=== PATIENT | male | born 1960 | race Caucasian/White ===

== ENCOUNTER 2023-04-12 14:14 | Inpatient (IN) | payer MEDICARE, OTHER ==
[~2023-04-12] VITALS: Ht 170.2 cm; Wt 63.5 kg
[2023-04-12 14:42] LABS: BASOPHILS % (AUTO) 0.4 % (0.0-2.0); EOSINOPHILS # (AUTO) 0.1 K/uL (0.0-0.7); EOSINOPHILS % (AUTO) 1.3 % (0.0-7.0); HEMATOCRIT 39.9 % (36.7-47.1); HEMOGLOBIN 13.6 g/dL (12.5-16.3); LYMPHOCYTES # (AUTO) 0.6 K/uL (0.8-4.8); LYMPHOCYTES % (AUTO) 8.8 % (20.5-51.5); MEAN CORPUSCULAR HEMOGLOBIN 32.2 uug (23.8-33.4); MEAN CORPUSCULAR HGB CONC 34 g/dL (32.5-36.3); MEAN CORPUSCULAR VOLUME 94.5 fL (73.0-96.2); MONOCYTES # (AUTO) 0.8 K/uL (0.1-1.30); MONOCYTES % (AUTO) 11.3 % (0.0-11.0); NEUTROPHILS # (AUTO) 5.6 K/uL (1.8-8.9); NEUTROPHILS % (AUTO) 78.2 % (38.5-71.5); PLATELET COUNT (AUTO) 236 K/uL (152-348); RED BLOOD CELL COUNT(AUTO) 4.22 MIL/uL (4.06-5.63); RED CELL DISTRIBUTION WIDTH 14.7 % (12.1-16.2); WHITE BLOOD COUNT (AUTO) 7.2 K/uL (3.6-10.2)
[2023-04-12] MEDS ORDERED: QUET25TA3 (15:04)
[2023-04-12] MEDS ORDERED: CLONAZEPAM (15:04)
[2023-04-12 15:05] LABS: DIFFERENTIAL COMMENT 1
[2023-04-12 15:07] LABS: AMMONIA 10 umol/L (11-32)
[2023-04-12 15:10] LABS: CALCIUM 8.9 mg/dL (8.5-10.1); CARBON DIOXIDE 27 mmol/L (21-32); CHLORIDE 104 mmol/L (98-107); GLUCOSE 99 mg/dL (74-106); POTASSIUM 3.5 mmol/L (3.5-5.1); SODIUM SERUM 140 mmol/L (136-145); UREA NITROGEN, BLOOD 18 mg/dL (7-18)
[2023-04-12 15:13] LABS: ETHANOL < 3 MG/DL (0-10)
[2023-04-12 15:18] LABS: ALANINE AMINOTRANSFERASE 43 U/L (16-63); ALBUMIN 3.8 g/dL (3.4-5.0); ALKALINE PHOSPHATASE 74 U/L (50-136); ASPARTATE AMINOTRANSFERASE 49 U/L (15-37); BILIRUBIN,DIRECT 0.3 mg/dL (0.0-0.2); BILIRUBIN,TOTAL 0.8 mg/dL (0.2-1.0); TOTAL PROTEIN, SERUM 6.7 g/dL (6.4-8.2)
[2023-04-12 15:33] LABS: ACETAMINOPHEN < 2.0 ug/mL (10-30)
[2023-04-12 18:15] VITALS: BP 143/82; TEMP 98.1; O2SAT 98
[2023-04-12 18:51] VITALS: BP 143/80; TEMP 98.1; O2SAT 98
[2023-04-12 20:05] VITALS: BP 128/89; TEMP 98.5; O2SAT 98
[2023-04-12] MEDS ORDERED: MAG HYDROX/AL HYDROX/SIMETH 30 ML LIQUID UDC PO PRN (20:15)
[2023-04-12] MEDS ORDERED: MAGNESIUM HYDROXIDE 30 ML LIQUID UDC PO PRN (20:15)
[2023-04-12] MEDS: LORAZEPAM 0.5 MG TABLET PO PRN (21:01)
[2023-04-13 07:52] LABS: BASOPHILS # (AUTO) 0.1 K/UL (0.0-0.2); BASOPHILS % (AUTO) 1.1 % (0.0-2.0); EOSINOPHILS # (AUTO) 0.5 K/uL (0.0-0.7); EOSINOPHILS % (AUTO) 7.7 % (0.0-7.0); HEMATOCRIT 39.6 % (36.7-47.1); HEMOGLOBIN 13.6 g/dL (12.5-16.3); LYMPHOCYTES # (AUTO) 1.2 K/uL (0.8-4.8); LYMPHOCYTES % (AUTO) 17.8 % (20.5-51.5); MEAN CORPUSCULAR HEMOGLOBIN 32.6 uug (23.8-33.4); MEAN CORPUSCULAR HGB CONC 34 g/dL (32.5-36.3); MEAN CORPUSCULAR VOLUME 94.8 fL (73.0-96.2); MONOCYTES # (AUTO) 0.9 K/uL (0.1-1.30); MONOCYTES % (AUTO) 12.9 % (0.0-11.0); NEUTROPHILS % (AUTO) 60.5 % (38.5-71.5); PLATELET COUNT (AUTO) 234 K/uL (152-348); RED BLOOD CELL COUNT(AUTO) 4.18 MIL/uL (4.06-5.63); RED CELL DISTRIBUTION WIDTH 14.3 % (12.1-16.2); WHITE BLOOD COUNT (AUTO) 6.6 K/uL (3.6-10.2)
[2023-04-13 08:00] VITALS: BP 130/77; TEMP 98.3; O2SAT 98
[2023-04-13 08:02] LABS: DIFFERENTIAL COMMENT 1
[2023-04-13 08:07] LABS: ALBUMIN 3.4 g/dL (3.4-5.0); BILIRUBIN,TOTAL 0.9 mg/dL (0.2-1.0); CALCIUM 8.8 mg/dL (8.5-10.1); CREATININE 0.9 mg/dL (0.6-1.3); POTASSIUM 3.2 mmol/L (3.5-5.1); TOTAL PROTEIN, SERUM 6.3 g/dL (6.4-8.2)
[2023-04-13] MEDS: LORAZEPAM 0.5 MG TABLET PO PRN (12:45)
[2023-04-13] MEDS ORDERED: POTASSIUM CHLORIDE 20 MEQ TAB.PRT.SR PO ONE (14:00)
[2023-04-13] MEDS ORDERED: risperiDONE 1 MG/ML UDC GT SCH (14:00)
[2023-04-13 16:50] VITALS: BP 115/82; TEMP 98.1; O2SAT 98
[2023-04-13] MEDS: risperiDONE 1 MG/ML UDC PO SCH ×2 (17:46→20:23)
[2023-04-13 20:00] VITALS: BP 109/74; TEMP 98.2; O2SAT 97
[2023-04-13] MEDS: CLONAZEPAM 1 MG TABLET PO SCH (20:23)
[2023-04-14] MEDS: ACETAMINOPHEN 325 MG TABLET PO PRN (05:34)
[2023-04-14] MEDS: LORAZEPAM 0.5 MG TABLET PO PRN ×2 (05:34→11:24)
[2023-04-14 07:52] VITALS: BP 122/76; TEMP 98.1; O2SAT 99
[2023-04-14] MEDS: risperiDONE 1 MG/ML UDC PO SCH ×3 (08:37→16:42)
[2023-04-14 16:36] VITALS: BP 105/72; TEMP 98; O2SAT 97
[2023-04-14 20:00] VITALS: BP 102/71; TEMP 98.3; O2SAT 98
[2023-04-14] MEDS: CLONAZEPAM 1 MG TABLET PO SCH (20:11)
[2023-04-14] MEDS ORDERED: risperiDONE 1 MG TABLET PO SCH (21:00)
[2023-04-14] MEDS: TEMAZEPAM 7.5 MG CAPSULE PO PRN (23:20)
[2023-04-15 07:30] VITALS: BP 126/74; TEMP 98; O2SAT 99
[2023-04-15] MEDS: risperiDONE 1 MG/ML UDC PO SCH ×3 (08:34→16:30)
[2023-04-15] MEDS ORDERED: OLANZAPINE 10 MG VIAL IM STA (10:39)
[2023-04-15] MEDS: DIVALPROEX SPRINKLE 125 MG CAP.SPRINK PO SCH ×2 (13:08→16:30)
[2023-04-15 15:34] VITALS: BP 132/71; TEMP 98; O2SAT 99
[2023-04-15 20:00] VITALS: BP 127/83; TEMP 98.1; O2SAT 96
[2023-04-15] MEDS ORDERED: risperiDONE 1 MG TABLET PO SCH (21:00)
[2023-04-15] MEDS: risperiDONE 2 MG TABLET PO SCH (21:07)
[2023-04-15] MEDS: CLONAZEPAM 1 MG TABLET PO SCH (21:08)
[2023-04-15] MEDS: TEMAZEPAM 7.5 MG CAPSULE PO PRN (23:00)
[2023-04-16 07:30] VITALS: BP 144/78; TEMP 98; O2SAT 99
[2023-04-16] MEDS: risperiDONE 1 MG/ML UDC PO SCH ×3 (08:51→17:49)
[2023-04-16] MEDS: DIVALPROEX SPRINKLE 125 MG CAP.SPRINK PO SCH ×3 (08:51→17:48)
[2023-04-16 15:36] VITALS: BP 141/75; TEMP 98.2; O2SAT 99
[2023-04-16 20:04] VITALS: BP 145/74; TEMP 98.1; O2SAT 98
[2023-04-16] MEDS: CLONAZEPAM 1 MG TABLET PO SCH (20:23)
[2023-04-16] MEDS: ATORVASTATIN 10 MG TABLET PO SCH (20:24)
[2023-04-16] MEDS: risperiDONE 2 MG TABLET PO SCH (20:24)
[2023-04-16] MEDS: LORAZEPAM 0.5 MG TABLET PO PRN (23:27)
[2023-04-17 08:12] VITALS: BP 118/77; TEMP 97.8; O2SAT 99
[2023-04-17] MEDS: DIVALPROEX SPRINKLE 125 MG CAP.SPRINK PO SCH ×3 (08:39→16:37)
[2023-04-17] MEDS: risperiDONE 1 MG/ML UDC PO SCH ×3 (08:41→16:37)
[2023-04-17 15:11] VITALS: BP 123/84; TEMP 98; O2SAT 98
[2023-04-17 20:05] VITALS: BP 102/70; TEMP 98.1; O2SAT 98
[2023-04-17] MEDS: risperiDONE 2 MG TABLET PO SCH (20:41)
[2023-04-17] MEDS: CLONAZEPAM 1 MG TABLET PO SCH (20:42)
[2023-04-17] MEDS: ATORVASTATIN 10 MG TABLET PO SCH (20:42)
[2023-04-17] MEDS: TEMAZEPAM 7.5 MG CAPSULE PO PRN (22:42)
[2023-04-18] MEDS: LORAZEPAM 0.5 MG TABLET PO PRN (03:17)
[2023-04-18 08:08] VITALS: BP 118/73; TEMP 98.2; O2SAT 100
[2023-04-18 08:11] LABS: BASOPHILS # (AUTO) 0.1 K/UL (0.0-0.2); BASOPHILS % (AUTO) 1.1 % (0.0-2.0); EOSINOPHILS # (AUTO) 0.4 K/uL (0.0-0.7); EOSINOPHILS % (AUTO) 8.6 % (0.0-7.0); HEMATOCRIT 37.6 % (36.7-47.1); HEMOGLOBIN 12.7 g/dL (12.5-16.3); LYMPHOCYTES # (AUTO) 1.2 K/uL (0.8-4.8); LYMPHOCYTES % (AUTO) 26.2 % (20.5-51.5); MEAN CORPUSCULAR HEMOGLOBIN 32.3 uug (23.8-33.4); MEAN CORPUSCULAR HGB CONC 34 g/dL (32.5-36.3); MEAN CORPUSCULAR VOLUME 95.6 fL (73.0-96.2); MONOCYTES # (AUTO) 0.6 K/uL (0.1-1.30); MONOCYTES % (AUTO) 13.5 % (0.0-11.0); NEUTROPHILS # (AUTO) 2.4 K/uL (1.8-8.9); NEUTROPHILS % (AUTO) 50.6 % (38.5-71.5); PLATELET COUNT (AUTO) 311 K/uL (152-348); RED BLOOD CELL COUNT(AUTO) 3.93 MIL/uL (4.06-5.63); RED CELL DISTRIBUTION WIDTH 14.2 % (12.1-16.2); WHITE BLOOD COUNT (AUTO) 4.7 K/uL (3.6-10.2)
[2023-04-18 08:38] LABS: DIFFERENTIAL COMMENT 1
[2023-04-18] MEDS: DIVALPROEX SPRINKLE 125 MG CAP.SPRINK PO SCH ×3 (08:44→16:18)
[2023-04-18] MEDS: risperiDONE 1 MG/ML UDC PO SCH ×3 (08:45→16:18)
[2023-04-18 08:59] LABS: ALBUMIN 3.4 g/dL (3.4-5.0); BILIRUBIN,TOTAL 0.5 mg/dL (0.2-1.0); CALCIUM 8.6 mg/dL (8.5-10.1); CREATININE 0.8 mg/dL (0.6-1.3); POTASSIUM 3.5 mmol/L (3.5-5.1); TOTAL PROTEIN, SERUM 6.2 g/dL (6.4-8.2)
[2023-04-18 15:28] VITALS: BP 106/78; TEMP 98; O2SAT 99
[2023-04-18 19:55] VITALS: BP 114/63; TEMP 98.1; O2SAT 100
[2023-04-18] MEDS: risperiDONE 2 MG TABLET PO SCH (20:03)
[2023-04-18] MEDS: CLONAZEPAM 1 MG TABLET PO SCH (20:03)
[2023-04-18] MEDS: ATORVASTATIN 10 MG TABLET PO SCH (20:03)
[2023-04-18] MEDS: TEMAZEPAM 7.5 MG CAPSULE PO PRN (23:59)
[2023-04-19 08:04] VITALS: BP 126/62; TEMP 98.4; O2SAT 98
[2023-04-19] MEDS: risperiDONE 1 MG/ML UDC PO SCH ×3 (08:22→16:52)
[2023-04-19] MEDS: DIVALPROEX SPRINKLE 125 MG CAP.SPRINK PO SCH ×3 (08:22→16:52)
[2023-04-19 16:09] VITALS: BP 128/80; TEMP 98.1; O2SAT 98
[2023-04-19 20:00] VITALS: BP 135/67; TEMP 98.2; O2SAT 99
[2023-04-19] MEDS: CLONAZEPAM 1 MG TABLET PO SCH (21:29)
[2023-04-19] MEDS: risperiDONE 2 MG TABLET PO SCH (21:29)
[2023-04-19] MEDS: ATORVASTATIN 10 MG TABLET PO SCH (21:29)
[2023-04-20] MEDS: TEMAZEPAM 7.5 MG CAPSULE PO PRN (00:37)
[2023-04-20] MEDS: LORAZEPAM 0.5 MG TABLET PO PRN (01:56)
[2023-04-20 08:13] VITALS: BP 144/68; TEMP 98; O2SAT 98
[2023-04-20] MEDS: risperiDONE 1 MG/ML UDC PO SCH ×3 (08:32→16:46)
[2023-04-20] MEDS: DIVALPROEX SPRINKLE 125 MG CAP.SPRINK PO SCH ×3 (08:32→16:46)
[2023-04-20 16:53] VITALS: BP 116/80; TEMP 98.1; O2SAT 98
[2023-04-20 20:00] VITALS: BP 135/87; TEMP 98.5
[2023-04-20] MEDS: risperiDONE 2 MG TABLET PO SCH (20:23)
[2023-04-20] MEDS: ATORVASTATIN 10 MG TABLET PO SCH (20:23)
[2023-04-20] MEDS: CLONAZEPAM 1 MG TABLET PO SCH (20:23)
[2023-04-20] MEDS: ACETAMINOPHEN 325 MG TABLET PO PRN (23:04)
[2023-04-21] MEDS: TEMAZEPAM 7.5 MG CAPSULE PO PRN (02:41)
[2023-04-21 08:05] VITALS: BP 126/56; TEMP 98.2; O2SAT 98
[2023-04-21] MEDS: risperiDONE 1 MG/ML UDC PO SCH ×3 (08:23→17:28)
[2023-04-21] MEDS: DIVALPROEX SPRINKLE 125 MG CAP.SPRINK PO SCH ×3 (08:23→17:28)
[2023-04-21 15:11] VITALS: BP 132/82; TEMP 98; O2SAT 99
[2023-04-21 20:00] VITALS: BP 135/82; TEMP 98.6; O2SAT 96
[2023-04-21] MEDS: risperiDONE 2 MG TABLET PO SCH (20:46)
[2023-04-21] MEDS: CLONAZEPAM 1 MG TABLET PO SCH (20:46)
[2023-04-21] MEDS: ATORVASTATIN 10 MG TABLET PO SCH (20:46)
[2023-04-22] MEDS: TEMAZEPAM 7.5 MG CAPSULE PO PRN (01:40)
[2023-04-22 08:06] VITALS: BP 138/90; TEMP 98.4; O2SAT 100
[2023-04-22] MEDS: DIVALPROEX SPRINKLE 125 MG CAP.SPRINK PO SCH ×3 (08:25→17:16)
[2023-04-22] MEDS: risperiDONE 1 MG/ML UDC PO SCH ×3 (08:25→17:19)
[2023-04-22 15:22] VITALS: BP 120/69; TEMP 98.4; O2SAT 99
[2023-04-22 20:00] VITALS: BP 126/71; TEMP 97.8; O2SAT 99
[2023-04-22] MEDS: CLONAZEPAM 1 MG TABLET PO SCH (21:05)
[2023-04-22] MEDS: risperiDONE 2 MG TABLET PO SCH (21:06)
[2023-04-22] MEDS: ATORVASTATIN 10 MG TABLET PO SCH (21:06)
[2023-04-23] MEDS: LORAZEPAM 0.5 MG TABLET PO PRN ×3 (04:33→21:34)
[2023-04-23 07:59] VITALS: BP 109/67; TEMP 98.2; O2SAT 99
[2023-04-23] MEDS: risperiDONE 1 MG/ML UDC PO SCH ×3 (08:29→17:14)
[2023-04-23] MEDS: DIVALPROEX SPRINKLE 125 MG CAP.SPRINK PO SCH ×3 (08:29→17:14)
[2023-04-23 16:13] VITALS: BP 114/70; TEMP 98; O2SAT 99
[2023-04-23 20:00] VITALS: BP 120/70; TEMP 97.6; O2SAT 98
[2023-04-23] MEDS: risperiDONE 2 MG TABLET PO SCH (20:12)
[2023-04-23] MEDS: CLONAZEPAM 1 MG TABLET PO SCH (20:12)
[2023-04-23] MEDS: ATORVASTATIN 10 MG TABLET PO SCH (20:12)
[2023-04-24] MEDS: TEMAZEPAM 7.5 MG CAPSULE PO PRN (00:29)
[2023-04-24] MEDS: ACETAMINOPHEN 325 MG TABLET PO PRN (06:46)
[2023-04-24] MEDS: LORAZEPAM 0.5 MG TABLET PO PRN (07:03)
[2023-04-24 07:58] VITALS: BP 141/66; TEMP 98; O2SAT 99
[2023-04-24] MEDS: risperiDONE 1 MG/ML UDC PO SCH (08:43)
[2023-04-24] MEDS: DIVALPROEX SPRINKLE 125 MG CAP.SPRINK PO SCH (08:43)
== END 2023-04-24 12:30 | disposition home or self-care (01) | DRG 885 ==
LOC: ER 14:31 → GPS 17:45
PROVIDERS: ADMIT Psychiatry & Neurology Psychosomatic Medicine; ATTEND Student in an Organized Health Care Education/Training Program
DX: F20.9 Schizophrenia, unspecified (principal); E78.5 Hyperlipidemia, unspecified; E05.90 Thyrotoxicosis, unspecified without thyrotoxic crisis or storm; Z73.6 Limitation of activities due to disability; E87.6 Hypokalemia; F29 Unspecified psychosis not due to a substance or known physiological condition; F17.210 Nicotine dependence, cigarettes, uncomplicated; F25.0 Schizoaffective disorder, bipolar type; Z79.899 Other long term (current) drug therapy
CPT/HCPCS: 36415; 70450; 71045; 80164; 84443; 84484; 85025; 85730; 93005; G0480; J2358